=== PATIENT | female | born 1965 | race Caucasian/White ===

== ENCOUNTER 2016-10-04 13:15 | Inpatient (IN) | payer OTHER ==
--- NOTE | 2016-10-04 17:34 | HP ---
COWS - Scale Resting Pulse: 2= [place] 101-120 Sweatin=Flushed/Facial Moisture Restless Observation: 3= Extraneous Movement Pupil Size: 0= Normal to Room Light Bone or Joint Aches: 2= Severe Diffuse Aches Runny Nose/ Eye Tearin= Runny Nose/Eyes GI Upset > 30mins: 2= Nausea/Diarrhea Tremor Observation: 2= Slight Tremor Visible Yawning Observation: 0= None Anxiety or Irritability: 2=Irritable/Anxious Goose Flesh Skin: 0=Smooth Skin COWS Score: 17 CIWA Score - CIWA Score Nausea/Vomitin-Mild Nausea/No Vomiting Muscle Tremors: 4-Moderate,w/Arms Extend Anxiety: 4-Mod. Anxious/Guarded Agitation: 4-Moderately Restless Paroxysmal Sweats: 1-Minimal Palms Moist Orientation: 0-Oriented Tacttile Disturbances: 0-None Auditory Disturbances: 0-None Visual Disturbances: 0-None Headache: 1-Very Mild CIWA-Ar Total Score: 15 Admission ROS BHS - HPI Chief Complaint: withdrawal sx Allergies/Adverse Reactions: Allergies Allergy/AdvReac Type Severity Reaction Status Date / Time No Known Allergies Allergy Verified 10/04/16 17:30 History of Present Illness: 51 years old female with long history of heroin nicotine dependence, copd has anxiety is admitted to detox Exam Limitations: No Limitations - Ebola screening Have you traveled outside of the country in the last 21 days: No Have you had contact with anyone from an Ebola affected area: No Have you been sick,other than usual withdrawal symptoms: No Do you have a fever: No - Review of Systems Constitutional: Chills, Changes in sleep, Weight Stable EENT: reports: Other (eye glasses) Respiratory: reports: SOB with Exertion Cardiac: reports: Palpitations GI: reports: Nausea, Poor Fluid Intake, Indigestion, Abdominal cramping : reports: No Symptoms Reported Musculoskeletal: reports: Back Pain, Joint Pain, Muscle Pain, Neck Pain Integumentary: reports: Change in Color (right and left inner elbows) Neuro: reports: Tremors Endocrine: reports: No Symptoms Reported Hematology: reports: No Symptoms Reported Psychiatric: reports: Judgement Intact, Orientated x3, Anxious Other Systems: Reviewed and Negative Patient History - Patient Medical History Hx Anemia: No Hx Asthma: No Hx Chronic Obstructive Pulmonary Disease (COPD): Yes Hx Cancer: No Hx Cardiac Disorders: No Hx Congestive Heart Failure: No Hx Hypertension: No Hx Hypercholesterolemia: No Hx Pacemaker: No HX Cerebrovascular Accident: No Hx Seizures: No Hx Dementia: No Hx Diabetes: No Hx Gastrointestinal Disorders: No Hx Liver Disease: No Hx Genitourinary Disorders: No Hx Sexually Transmitted Disorders: No Hx Renal Disease (ESRD): No Hx Thyroid Disease: No Hx Human Immunodeficiency Virus (HIV): No Hx Hepatitis C: Yes (x 25 years) Hx Depression: Yes Hx Suicide Attempt: No Hx Bipolar Disorder: No Hx Schizophrenia: No - Patient Surgical History Past Surgical History: Yes Hx Neurologic Surgery: No Hx Cataract Extraction: No Hx Cardiac Surgery: No Hx Lung Surgery: No Hx Breast Surgery: No Hx Breast Biopsy: No Hx Abdominal Surgery: No Hx Appendectomy: No Hx Cholecystectomy: No Hx Genitourinary Surgery: No Hx Section: Yes (35 years old) Hx Orthopedic Surgery: Yes (right wrist left knee 2011) Hx Hysterectomy: No Anesthesia Reaction: No - PPD History Previous Implant?: Yes Documented Results: Negative w/o proof Implanted On Prior R Admission?: No PPD to be Administered?: Yes - Reproductive History Patient is a Female of Child Bearing Age (11 -55 yrs old): Yes Last Menstrual Period: 10/02/85 Patient : No - Smoking Cessation Smoking history: Current every day smoker Have you smoked in the past 12 months: Yes Aproximately how many cigarettes per day: 20 Cigars Per Day: 0 Hx Chewing Tobacco Use: No Initiated information on smoking cessation: Yes 'Breaking Loose' booklet given: 10/04/16 - Substance & Tx. History Hx Alcohol Use: No Hx Substance Use: Yes Substance Use Type: Cocaine, Opiates, Tranquilizers Hx Substance Use Treatment: Yes - Substances Abused Heroin Route: Injection Frequency: Daily Amount used: 10 bags Age of first use: 16 Date of Last Use: 10/04/16 Alprazolam (Xanax) Route: Oral Frequency: 3-6 times per week Amount used: 3-4 mg Age of first use: 46 Date of Last Use: 10/03/16 Family Disease History - Family Disease History Family Disease History: Heart Disease: Father ( ), Mother, Other: Sister Admission Physical Exam BHS - Physical General Appearance: Yes: Nourished, Appropriately Dressed, Mild Distress, Tremorous, Irritable, Sweating, Anxious HEENTM: Yes: Hearing grossly Normal, Normal ENT Inspection, Normocephalic, Normal Voice Respiratory: Yes: Chest Non-Tender, Labored Respiration, No Respiratory Distress , No Accessory Muscle Use, Hyperresonant, Inspiration Neck: Yes: Supple, Trachea in good position Breast: Yes: Breasts Symetrical Cardiology: Yes: Regular Rhythm, S1, S2, Tachycardia Abdominal: Yes: Non Tender, Soft Genitourinary: Yes: Within Normal Limits Back: Yes: Normal Inspection Musculoskeletal: Yes: full range of Motion, Gait Steady Extremities: Yes: Normal Range of Motion, Non-Tender, Tremors, Swelling (left hand soft tissue) Neurological: Yes: Fully Oriented, Alert, Motor Strength 5/5, Normal Response, Depressed Affect Integumentary: Yes: Warm Lymphatic: Yes: Within Normal Limits - Diagnostic (1) Opioid dependence with withdrawal Current Visit: Yes Status: Acute (2) Sedative, hypnotic or anxiolytic dependence with withdrawal, uncomplicated Current Visit: Yes Status: Acute (3) Tachycardia Current Visit: Yes Status: Chronic (4) COPD (chronic obstructive pulmonary disease) Current Visit: Yes Status: Acute Qualifiers: COPD type: emphysema Emphysema type: unilateral Qualified Code(s ): J43.0 - Unilateral pulmonary emphysema [MacLeod's syndrome] (5) Anxiety Current Visit: Yes Status: Suspected (6) Hepatitis C antibody test positive Current Visit: Yes Status: Chronic Cleared for Admission [facility] - Detox or Rehab [facility] Level of Care: Medically Managed Detox Regimen/Protocol: Methadone/Valium S Breath Alcohol Content Breath Alcohol Content: 0 Vital Signs - Vital Signs Vital Signs Refused: No Temperature: 96.5 F Temperature Source: Oral Pulse Rate: 112 Respiratory Rate: 20 Blood Pressure: 124/76 BP Location: Left Arm Blood Pressure Position: Sitting - Height Height: 5 ft 5 in - Weight Weight: 193 lb Weight Measurement Method: Standing Scale Body Mass Index (BMI): 32.1 - Bowel Function Bowel Movement: Yes Urine Pregancy Test - Result Urine Test Results: Negative- NO Line Present Urine Drug Screen - Control Is Test Valid: Yes - Results Drug Screen Negative: Yes Urine Drug Screen Results: LEANDRA-Cocaine, OPI-Opiates, BZO-Benzodiazepines, TCA- Tricyclic Antidepress, OXY-Oxycodone
[2016-10-04 17:39] VITALS: BMI 32.1
[2016-10-04] MEDS ORDERED: P-EPHED 60MG/TRIPROLIDI 2.5MG TABLET PO PRN (17:45)
[2016-10-04] MEDS ORDERED: LOPERAMIDE HCL 2 MG CAPSULE PO PRN (17:45)
[2016-10-04] MEDS ORDERED: guaiFENesin/D-METHORPHAN HB 10 ML UNIT-DOSE CUPS PO PRN (17:45)
[2016-10-04] MEDS ORDERED: NICOTINE POLACRILEX 2 MG GUM BC PRN (17:45)
[2016-10-04] MEDS ORDERED: MAG HYDROX/AL HYDROX/SIMETH 30 ML UNIT-DOSE CUP PO PRN (17:45)
[2016-10-04] MEDS ORDERED: MAGNESIUM HYDROX 2400MG/30ML ORAL SUSPENSION 30 ML CUP PO PRN (17:45)
[2016-10-04] MEDS ORDERED: MENTHOL/PHENOL 1 EACH UD MM PRN (17:45)
[2016-10-04] MEDS ORDERED: MAGNESIUM CITRATE 300 ML BOTTLE PO PRN (17:45)
[2016-10-04] MEDS ORDERED: diazePAM 5 MG TABLET PO ONE (17:45)
[2016-10-04] MEDS ORDERED: IBUPROFEN 400 MG TABLET (FP) PO PRN (17:45)
[2016-10-04] MEDS ORDERED: METHADONE HCL 10 MG TABLET (FOR DETOX USE ONLY) PO ONE ×2 (17:45→23:00)
[2016-10-04] MEDS ORDERED: ALBUTEROL SO4 6.7 GM HFA INHALER IH PRN (17:48)
[2016-10-04] MEDS ORDERED: METHADONE HCL 10 MG TABLET (FOR DETOX USE ONLY) ONE (20:27)
[2016-10-04] MEDS: diazePAM 5 MG TABLET PO SCH (22:32)
[2016-10-04] MEDS: THIAMINE HCL 100 MG TABLET (FP) PO SCH (22:32)
[2016-10-04] MEDS: BUDESONIDE/FORMETEROL FUMARATE 80/4.5 mcg INHALER IH SCH (22:55)
[2016-10-04 23:00] LABS: URINE APPEARANCE CLEAR; URINE BILIRUBIN NEGATIVE (NEGATIVE); URINE BLOOD NEGATIVE (NEGATIVE); URINE COLOR LTYELLOW; URINE GLUCOSE (UA) NEGATIVE (NEGATIVE); URINE KETONE NEGATIVE (NEGATIVE); URINE LEUK ESTERASE NEGATIVE (NEGATIVE); URINE NITRITE NEGATIVE (NEGATIVE); URINE PROTEIN NEGATIVE (NEGATIVE); URINE UROBILINOGEN NEGATIVE E.U./dl (0.2-1.0)
[2016-10-05] MEDS: diazePAM 5 MG TABLET PO SCH ×3 (06:19→22:35)
--- NOTE | 2016-10-05 08:48 | CONSULT ---
[facility] Psychiatric Consult - Data Date of interview: 10/05/16 Admission source: [facility] Identifying data: This is 51 years old obese female with no psychiatric hospitalization history intoxicated with: Opioids, Xanax and Nicotine Substance Abuse History: Smoking history: Current every day smoker. Have you smoked in the past 12 months: Yes. Aproximately how many cigarettes per day: 20. Cigars Per Day: 0. Hx Chewing Tobacco Use: No. Initiated information on smoking cessation: Yes. 'Breaking Loose' booklet given: 10/04/16. - Substance & Tx. History. Hx Alcohol Use: No. Hx Substance Use: Yes. Substance Use Type : Cocaine, Opiates, Tranquilizers. Hx Substance Use Treatment: Yes. - Substances Abused. Heroin. Route: Injection. Frequency: Daily. Amount used: 10 bags. Age of first use: 16. Date of Last Use: 10/04/16. Alprazolam (Xanax). Route: Oral. Frequency: 3-6 times per week. Amount used: 3-4 mg. Age of first use: 46. Date of Last Use: 10/03/16 Medical History: Obesity, COPD, HepC+ Psychiatric History: Patient reports history of anxiety, reports nop medications tsaking prior to admission, asking for Xanax Physical/Sexual Abuse/Trauma History: Denies, unclear Additional Comment: Observation. Detox Unit Care Protocol Psychiatric Findings - Problem List ([place] 1, 2,3) (1) COPD (chronic obstructive pulmonary disease) Current Visit: Yes Status: Acute Qualifiers: COPD type: emphysema Emphysema type: unilateral Qualified Code(s ): J43.0 - Unilateral pulmonary emphysema [MacLeod's syndrome] (2) Opioid dependence with withdrawal Current Visit: Yes Status: Acute (3) Sedative, hypnotic or anxiolytic dependence with withdrawal, uncomplicated Current Visit: Yes Status: Acute (4) Drug-induced mood disorder Current Visit: Yes Status: Acute - Initial Treatment Plan Initial Treatment Plan: Geodone 40mg po bid. Trazodone 100mg po qhs. Neurontin 100mg po bid
[2016-10-05] MEDS ORDERED: METHADONE HCL 10 MG TABLET (FOR DETOX USE ONLY) PO SCH (10:00)
[2016-10-05] MEDS: BUDESONIDE/FORMETEROL FUMARATE 80/4.5 mcg INHALER IH SCH ×2 (10:45→22:34)
[2016-10-05] MEDS: NICOTINE 21 MG/24 HOURS TOPICAL PATCH TD SCH (10:46)
[2016-10-05] MEDS: PRENATAL VITAMINS W/ FOLIC ACID TABLET (FP) PO SCH (10:46)
[2016-10-05] MEDS: diazePAM 5 MG TABLET PO PRN ×2 (10:47→19:06)
--- NOTE | 2016-10-05 11:21 | PN ---
[facility] CIWA - CIWA Score Nausea/Vomitin Muscle Tremors: 3 Anxiety: 3 Agitation: 3 Paroxysmal Sweats: 3 Orientation: 0-Oriented Tacttile Disturbances: 2-Mild Itch/Numbness/Burn Auditory Disturbances: 0-None Visual Disturbances: 0-None Headache: 0-None Present CIWA-Ar Total Score: 16 BHS COWS - Scale Resting Pulse: 1= AR 81-100 Sweatin= Chills/Flushing Restless Observation: 1= Difficult to Sit Still Pupil Size: 1= Pupils >than Normal Bone or Joint Aches: 2= Severe Diffuse Aches Runny Nose/ Eye Tearin= Nasal Congestion GI Upset > 30mins: 1= Stomach Cramp Tremor Observation of Outstretched Hands: 2= Slight Tremor Visible Yawning Observation: 1= 1-2x During Session Anxiety or Irritability: 2=Irritable/Anxious Goose Flesh Skin: 0=Smooth Skin COWS Score: 13 S Progress Note (SOAP) Subjective: interrrupted sleep, sweats ,shakes,diarrhea Objective: 10/05/16 11:20 Vital Signs Temperature 98.5 F 10/05/16 07:43 Pulse Rate 81 10/05/16 07:43 Respiratory Rate 18 10/05/16 07:43 Blood Pressure 113/68 10/05/16 07:43 O2 Sat by Pulse Oximetry (%) Laboratory Tests 10/04/16 22:04 Urine Color Ltyellow Urine Appearance Clear Urine pH 5.0 Ur Specific [place] 1.012 Urine Protein Negative Urine Glucose (UA) Negative Urine Ketones Negative Urine Blood Negative Urine Nitrite Negative Urine Bilirubin Negative Urine Urobilinogen Negative Ur Leukocyte Esterase Negative pending labs pt aox3 in nad ambulating Assessment: 10/05/16 11:20 withdrawl sx's diarrhea Plan: cont. detox increase fluids flexeril 10mfg tid ensure bid imodium prn
[2016-10-05 11:31] LABS: MCH 29.5 pg (25.7-33.7); MCHC 33.3 g/dl (32.0-36.0); MEAN CELL VOLUME 88.6 fl (80-96); MEAN PLT VOLUME 8.7 fl (7.5-11.1); PLATELET COUNT 237 K/MM3 (134-434); RDW 13.1 % (11.6-15.6); WHITE BLOOD COUNT 8.3 K/mm3 (4.0-10.0)
[2016-10-05 11:43] LABS: ALBUMIN 3.9 g/dl (3.4-5.0); ALK PHOS 126 U/L (45-117); ANION GAP 7 (8-16); BILIRUBIN,TOTAL 0.6 mg/dL (0.2-1.0); CALCIUM 9.2 mg/dL (8.5-10.1); CO2 31 mmol/L (21-32); CREATININE 0.7 mg/dL (0.55-1.02); GLUCOSE,RANDOM 81 mg/dL (74-106); SGOT/AST 21 U/L (15-37); SGPT/ALT 28 U/L (12-78); TOT PROT 7.6 g/dl (6.4-8.2)
[2016-10-05] MEDS: THIAMINE HCL 100 MG TABLET (FP) PO SCH (22:35)
[2016-10-05] MEDS: diphenhydrAMINE HCL 50 MG CAPSULE PO PRN (22:35)
[2016-10-05] MEDS: CYCLOBENZAPRINE HCL 10 MG TABLET (FP) PO PRN (22:35)
[2016-10-06] MEDS: diazePAM 5 MG TABLET PO PRN ×4 (01:28→18:18)
[2016-10-06] MEDS: diphenhydrAMINE HCL 50 MG CAPSULE PO PRN ×2 (01:29→22:35)
[2016-10-06] MEDS: ACETAMINOPHEN 325 MG TABLET (FP) PO PRN ×2 (03:45→22:36)
[2016-10-06] MEDS ORDERED: METHADONE HCL 5 MG TABLET (FOR DETOX USE ONLY) PO SCH (10:00)
[2016-10-06] MEDS: BUDESONIDE/FORMETEROL FUMARATE 80/4.5 mcg INHALER IH SCH ×2 (10:51→22:35)
[2016-10-06] MEDS: diazePAM 5 MG TABLET PO SCH ×2 (10:51→22:36)
[2016-10-06] MEDS: PRENATAL VITAMINS W/ FOLIC ACID TABLET (FP) PO SCH (10:51)
[2016-10-06] MEDS: NICOTINE 21 MG/24 HOURS TOPICAL PATCH TD SCH (10:51)
--- NOTE | 2016-10-06 11:32 | PN ---
[facility] CIWA - CIWA Score Nausea/Vomitin-No Nausea/No Vomiting Muscle Tremors: 4-Moderate,w/Arms Extend Anxiety: 3 Agitation: 4-Moderately Restless Paroxysmal Sweats: 3 Orientation: 0-Oriented Tacttile Disturbances: 0-None Auditory Disturbances: 0-None Visual Disturbances: 0-None Headache: 0-None Present CIWA-Ar Total Score: 14 BHS COWS - Scale Resting Pulse: 2= RI 101-120 Sweatin=Flushed/Facial Moisture Restless Observation: 1= Difficult to Sit Still Pupil Size: 0= Normal to Room Light Bone or Joint Aches: 1= Mild Discomfort Runny Nose/ Eye Tearin= Nasal Congestion GI Upset > 30mins: 0= None Tremor Observation of Outstretched Hands: 2= Slight Tremor Visible Yawning Observation: 1= 1-2x During Session Anxiety or Irritability: 2=Irritable/Anxious Goose Flesh Skin: 3=Piloerection COWS Score: 15 [facility] Progress Note (SOAP) Subjective: restless agitation anxiety sweats shakes interrupted sleep irritable Objective: 10/06/16 11:31 Vital Signs Temperature 97 F L 10/06/16 10:14 Pulse Rate 104 H 10/06/16 10:14 Respiratory Rate 18 10/06/16 10:14 Blood Pressure 119/60 10/06/16 10:14 O2 Sat by Pulse Oximetry (%) Laboratory Tests 10/04/16 10/05/16 10/05/16 22:04 06:00 06:00 WBC 8.3 RBC 4.05 Hgb 11.9 Hct 35.9 MCV 88.6 MCHC 33.3 RDW 13.1 Plt Count 237 MPV 8.7 Sodium 141 Potassium 4.3 Chloride 103 Carbon Dioxide 31 Anion Gap 7 L BUN 13 Creatinine 0.7 Creat Clearance w eGFR > 60 Random Glucose 81 Calcium 9.2 Total Bilirubin 0.6 AST 21 ALT 28 Alkaline Phosphatase 126 H Total Protein 7.6 Albumin 3.9 Urine Color Ltyellow Urine Appearance Clear Urine pH 5.0 Ur Specific [place] 1.012 Urine Protein Negative Urine Glucose (UA) Negative Urine Ketones Negative Urine Blood Negative Urine Nitrite Negative Urine Bilirubin Negative Urine Urobilinogen Negative Ur Leukocyte Esterase Negative RPR Titer 10/05/16 06:00 WBC RBC Hgb Hct MCV MCHC RDW Plt Count MPV Sodium Potassium Chloride Carbon Dioxide Anion Gap BUN Creatinine Creat Clearance w eGFR Random Glucose Calcium Total Bilirubin AST ALT Alkaline Phosphatase Total Protein Albumin Urine Color Urine Appearance Urine pH Ur Specific [place] Urine Protein Urine Glucose (UA) Urine Ketones Urine Blood Urine Nitrite Urine Bilirubin Urine Urobilinogen Ur Leukocyte Esterase RPR Titer Nonreactive awake/alert ambulating no acute distress Assessment: 10/06/16 11:31 withdrawal sx Plan: continue detox increase fluids
--- NOTE | 2016-10-06 14:50 | PN ---
[facility] Progress Note Note: TP. WAS SENT TO DETOX SO SHE WOULD ADMITTED TO OTP. SHE'LL COMPLETE [facility] DETOX ON 10/08/16 P : BUILD UP METHADONE TO 80 MG DAILY
[2016-10-06] MEDS: THIAMINE HCL 100 MG TABLET (FP) PO SCH (22:36)
[2016-10-07] MEDS: diazePAM 5 MG TABLET PO PRN ×4 (02:19→17:07)
[2016-10-07] MEDS: ACETAMINOPHEN 325 MG TABLET (FP) PO PRN ×2 (05:42→20:27)
[2016-10-07] MEDS ORDERED: METHADONE HCL 10 MG TABLET PO SCH (06:00)
[2016-10-07] MEDS: BUDESONIDE/FORMETEROL FUMARATE 80/4.5 mcg INHALER IH SCH ×2 (09:54→22:25)
[2016-10-07] MEDS: CYCLOBENZAPRINE HCL 10 MG TABLET (FP) PO PRN ×2 (10:44→22:25)
[2016-10-07] MEDS: diazePAM 5 MG TABLET PO SCH ×2 (10:44→22:25)
[2016-10-07] MEDS: PRENATAL VITAMINS W/ FOLIC ACID TABLET (FP) PO SCH (10:44)
[2016-10-07] MEDS: NICOTINE 21 MG/24 HOURS TOPICAL PATCH TD SCH (10:47)
--- NOTE | 2016-10-07 11:15 | PN ---
B[facility] Progress Note (SOAP) Subjective: gi upset, insomnia, sweating Objective: 10/07/16 11:15 Laboratory Tests 10/04/16 10/05/16 10/05/16 22:04 06:00 06:00 WBC 8.3 RBC 4.05 Hgb 11.9 Hct 35.9 MCV 88.6 MCHC 33.3 RDW 13.1 Plt Count 237 MPV 8.7 Sodium 141 Potassium 4.3 Chloride 103 Carbon Dioxide 31 Anion Gap 7 L BUN 13 Creatinine 0.7 Creat Clearance w eGFR > 60 Random Glucose 81 Calcium 9.2 Total Bilirubin 0.6 AST 21 ALT 28 Alkaline Phosphatase 126 H Total Protein 7.6 Albumin 3.9 Urine Color Ltyellow Urine Appearance Clear Urine pH 5.0 Ur Specific [place] 1.012 Urine Protein Negative Urine Glucose (UA) Negative Urine Ketones Negative Urine Blood Negative Urine Nitrite Negative Urine Bilirubin Negative Urine Urobilinogen Negative Ur Leukocyte Esterase Negative RPR Titer 10/05/16 06:00 WBC RBC Hgb Hct MCV MCHC RDW Plt Count MPV Sodium Potassium Chloride Carbon Dioxide Anion Gap BUN Creatinine Creat Clearance w eGFR Random Glucose Calcium Total Bilirubin AST ALT Alkaline Phosphatase Total Protein Albumin Urine Color Urine Appearance Urine pH Ur Specific [place] Urine Protein Urine Glucose (UA) Urine Ketones Urine Blood Urine Nitrite Urine Bilirubin Urine Urobilinogen Ur Leukocyte Esterase RPR Titer Nonreactive Vital Signs - 24 hr 10/06/16 10/06/16 10/06/16 14:58 18:14 22:39 Temperature 97.2 F L 98.1 F 98.1 F Pulse Rate 101 H 83 102 H Respiratory 18 18 18 Rate Blood Pressure 121/73 128/78 141/84 10/07/16 10/07/16 10/07/16 03:30 06:00 10:30 Temperature 96.1 F L 97.3 F L Pulse Rate 97 H 87 Respiratory 18 16 18 Rate Blood Pressure 148/81 122/57 Assessment: 10/07/16 11:15 ongoing withdrawal Plan: continue detox protocol
--- NOTE | 2016-10-07 13:23 | PN ---
[facility] Progress Note Note: pt will complete detox tomorrow and will be discharged. pt will receive her 30mg of methadone on her discharge date as well. pt will then return to methadone program on Monday10/09/16 for methadone maintenance at [facility] facility to begin her maintenance. Program is aware.
[2016-10-07 22:23] VITALS: BP 144/81; PULSE 77; TEMP 97.7
[2016-10-07] MEDS: THIAMINE HCL 100 MG TABLET (FP) PO SCH (22:25)
[2016-10-07] MEDS: diphenhydrAMINE HCL 50 MG CAPSULE PO PRN (22:25)
[2016-10-08] MEDS ORDERED: METHADONE HCL 10 MG TABLET PO SCH (06:00)
--- NOTE | 2016-10-08 07:33 | PN ---
S Progress Note (SOAP) Subjective: ALERT,NO COMPLAINT Objective: 10/08/16 07:31 Vital Signs Temperature 97.7 F 10/07/16 22:23 Pulse Rate 77 10/07/16 22:23 Respiratory Rate 16 10/08/16 03:30 Blood Pressure 144/81 10/07/16 22:23 O2 Sat by Pulse Oximetry (%) Assessment: 10/08/16 07:32 DETOX COMPLETED,NO WITHDRAWAL SYMPTOM Plan: DISCHARGE TODAY,FOLLOW UP WITH AFTER CARE PROGRAM ARRANGEMENT
--- NOTE | 2016-10-08 07:37 | DS ---
[facility] Detox Discharge Summary Admission Date: 10/04/16 Discharge Date: 10/08/16 - History Present History: Sedative Dependence, MMTP Additional Comments: FOLLOW UP WITH AFTER CARE PROGRAM ARRANGEMENT Pertinent Past History: HEPATITIS C - Physical Exam Results Vital Signs: Vital Signs Temperature 97.7 F 10/07/16 22:23 Pulse Rate 77 10/07/16 22:23 Respiratory Rate 16 10/08/16 03:30 Blood Pressure 144/81 10/07/16 22:23 O2 Sat by Pulse Oximetry (%) Pertinent Admission Physical Exam Findings: WITHDRAWAL SYMPTOM - Treatment Hospital Course: Detox Protocol Followed, Detoxed Safely, Responded well, Discharged Condition Good Patient has Accepted a Rehab Referral to: DECLINED - Medication Discharge Medications: Ambulatory Orders NK [No Known Home Medication] 10/04/16 - AMA Did Patient Leave Against Medical Advice: No
[2016-10-08] MEDS ORDERED: METHADONE HCL 10 MG TABLET (FOR DETOX USE ONLY) PO SCH (10:00)
[2016-10-08] MEDS ORDERED: diazePAM 5 MG TABLET PO SCH (10:00)
[2016-10-09] MEDS ORDERED: METHADONE HCL 5 MG TABLET (FOR DETOX USE ONLY) PO SCH (06:00)
[2016-10-09] MEDS ORDERED: METHADONE HCL 40 MG DISPERSABLE TABLET PO SCH (06:00)
== END 2016-10-08 06:30 | disposition home or self-care (01) | DRG 897 ==
LOC: YASAS 13:15 → Y6N 18:58
PROVIDERS: ADMIT Internal Medicine Addiction Medicine; ATTEND Internal Medicine Addiction Medicine
PROC: HZ2ZZZZ Detoxification Services for Substance Abuse Treatment (ICD-10-PCS; principal; 2016-10-04)
DX: F11.23 Opioid dependence with withdrawal (principal); F13.230 Sedative, hypnotic or anxiolytic dependence with withdrawal, uncomplicated; F17.210 Nicotine dependence, cigarettes, uncomplicated; F19.24 Other psychoactive substance dependence with psychoactive substance-induced mood disorder; F41.9 Anxiety disorder, unspecified; E66.9 Obesity, unspecified; Z68.32 Body mass index [BMI] 32.0-32.9, adult; J43.0 Unilateral pulmonary emphysema [MacLeod's syndrome]; R00.0 Tachycardia, unspecified
CPT/HCPCS: 36415; 80053; 81003; 85027; 86593; 86803; 87522; 93005; 93010

== ENCOUNTER 2019-02-19 12:38 | Emergency (ER) | payer OTHER ==
[2019-02-19 12:44] VITALS: BP 108/62; PULSE 99; TEMP 98.2; BMI 36.6
--- NOTE | 2019-02-19 14:50 | PDOC ---
History of Present Illness - General Chief Complaint: Pain Stated Complaint: SENT BY PCP R/O DVT LEFT LEG Time Seen by Provider: 02/19/19 13:20 History Source: Patient Exam Limitations: No Limitations - History of Present Illness Initial Comments: 02/19/19 14:46 53F with no PMH (does not follow with PCP) who presents to the ER from [facility] for L leg swelling. The patient states that she's noticed worsening swelling in her L LE with "some" shortness of breath without CP, fever, chills, nausea, vomiting, diaphoresis. She has never had this in the past. She denies any long car rides/plane trips, hx of DVT/PE, hx of recent surgery, hx of cancer , hx of malignancy. She admits to smoking 1ppd. Past History - Past Medical History Allergies/Adverse Reactions: Allergies Allergy/AdvReac Type Severity Reaction Status Date / Time No Known Allergies Allergy Verified 02/19/19 12:44 Home Medications: Ambulatory Orders Albuterol Sulfate Inhaler - [Ventolin HFA Inhaler -] 2 puff IH Q4H PRN #0 inhaler 10/08/16 Budesonide/Formeterol Fumarate [SYMBICORT 80/4.5mcg -] 2 puff IH BID inhaler Anemia: No Asthma: No Cancer: No Cardiac Disorders: No CVA: No COPD: Yes CHF: No Dementia: No Diabetes: No GI Disorders: No Disorders: No HTN: No Hypercholesterolemia: No Liver Disease: No Seizures: No Thyroid Disease: No - Surgical History Abdominal Surgery: No Appendectomy: No Cardiac Surgery: No Cholecystectomy: No Lung Surgery: No Neurologic Surgery: No Orthopedic Surgery: Yes (right wrist left knee 2012) - Suicide/Smoking/Psychosocial Hx Smoking History: Current every day smoker Have you smoked in the past 12 months: Yes Number of Cigarettes Smoked Daily: 20 Cigars Per Day: 0 Information on smoking cessation initiated: Yes 'Breaking Loose' booklet given: 10/04/16 Hx Alcohol Use: Yes Drug/Substance Use Hx: No (methadone) Substance Use Type: Alcohol Hx Substance Use Treatment: Yes Review of Systems - Review of Systems Able to Perform ROS?: Yes Comments:: 02/19/19 14:51 GENERAL/CONSTITUTIONAL: No fever or chills. No weakness. HEAD, EYES, EARS, NOSE AND THROAT: No change in vision. No ear pain or discharge. No sore throat. CARDIOVASCULAR: No chest pain, palpitations, or lightheadedness. RESPIRATORY: No cough, wheezing, shortness of breath, or hemoptysis. GASTROINTESTINAL: No nausea, vomiting, diarrhea, constipation, or abdominal pain. GENITOURINARY: No dysuria, frequency, hematuria, or change in urination. MUSCULOSKELETAL: + for L LE swelling. No neck or back pain. SKIN: No rash or lesions. NEUROLOGIC: No headache, numbness, tingling, focal weakness, loss of consciousness, or change in strength/sensation. Is the patient limited [place]ian proficient: No *Physical Exam - Vital Signs Last Vital Signs Temp Pulse Resp BP Pulse Ox 98.2 F 99 H 18 108/62 95 02/19/19 12:42 02/19/19 12:42 02/19/19 12:42 02/19/19 12:42 02/19/19 12:42 - Physical Exam Comments: 02/19/19 14:54 GENERAL: Well developed, well nourished. Awake and alert. No acute distress. HEENT: Normocephalic, atraumatic. Hearing grossly normal. Moist mucous membranes. PERRLA, EOMI. No conjunctival pallor. Sclera are non-icteric. NECK: Supple. Full ROM. No JVD. CARDIOVASCULAR: Regular rate and rhythm. No murmurs, rubs, or gallops. Distal pulses are 2+ and symmetric. PULMONARY: No evidence of respiratory distress. Lungs clear to auscultation bilaterally. No wheezing, rales or rhonchi. ABDOMINAL: Soft. Non-tender. Non-distended. No rebound or guarding. MUSCULOSKELETAL: Normal range of motion at all joints. No bony deformities or tenderness. EXTREMITIES: No cyanosis. No clubbing. No edema. L calf swelling noted. SKIN: Warm and dry. Normal capillary refill. No rashes. No jaundice. NEUROLOGICAL: Alert, awake, appropriate. Cranial nerves 2-12 intact. Normal speech. Gait is normal without ataxia. PSYCHIATRIC: Cooperative. Good eye contact. Appropriate mood and affect. ED Treatment Course - LABORATORY CBC & Chemistry Diagram: 02/19/19 15:00 - RADIOLOGY Radiology Studies Ordered: Category Date Time Status DUPLEX VASCUL US-1 LEG [US] Stat Ultrasound 02/19/19 14:11 Ordered Medical Decision Making - Medical Decision Making 02/19/19 14:59 53F who presents with L LE swelling x 3 weeks concerning for DVT vs other process (CHF, cellulitis, popliteal cyst). Pending US. Will order labs. Pt stable and comfortable appearing. 02/19/19 16:07 US negative for DVT. Soft tissue swelling is noted in the L LE. *DC/Admit/Observation/Transfer Diagnosis at time of Disposition: Leg swelling - Discharge Dispostion Disposition: AGAINST MEDICAL ADVICE Condition at time of disposition: Stable Decision to Admit order: No - Referrals - Patient Instructions Printed Discharge Instructions: DI for Deep Vein Thrombosis Additional Instructions: You are leaving against medical advice. Please follow up with your primary care doctor and return to the ER if you develop any signs or symptoms of chest pain, shortness of breath, uncontrollable fever, chills, nausea, vomiting, numbness, tingling, or weakness in any part of your body, changes in vision, or slurred speech. Your ER visit is not complete until your follow up with your primary care physician. Please follow up with your primary care physician in 1-2 days. Please return to the ER if symptoms persist, worsen, or new symptoms arise. - Post Discharge Activity
--- NOTE | 2019-02-19 17:28 | PDOC ---
Documentation entered by Shannon Munoz SCRIBE, acting as scribe for Lea Plascencia MD. Lea Plascencia MD: This documentation has been prepared by the Tammy abbasi Renju, SCRIBE, under my direction and personally reviewed by me in its entirety. I confirm that the documentation accurately reflects all work, treatment, procedures, and medical decision making performed by me. Attending Attestation - Resident Resident Name: BrockcristianTyrone - ED Attending Attestation I have performed the following: I have examined & evaluated the patient, The case was reviewed & discussed with the resident, I agree w/resident's findings & plan, Exceptions are as noted - HPI HPI: 02/19/19 15:54 53yo F hx HCV s/p treatment presents from the [facility], p/w L leg swelling for 3 weeks. Pt reports the swelling was previously in her RLE as well but has resolved. Pt attributes the swelling in her legs to salt water soaks she was doing to thin her toe nails out. Pt denies having similar symptoms in the past. Denies shortness of breath or chest pain. DEnies recent travel or immobility. Denies fevers or chills. Denies cancer hx. Endorses cigarette smoking. Pt was seen at the [facility] for the swelling this morning and out of concern for DVT , she was sent to the ED. Denies headache, abd pain, N/V, focal weakness/numbness. - Physicial Exam PE: 02/19/19 15:55 GENERAL: Awake, alert, and fully oriented, in no acute distress EYES: PERRLA, EOMI, sclera anicteric, conjunctiva clear ENT: Oropharynx clear without exudates. Moist mucosa NECK: Normal ROM, supple, no lymphadenopathy, JVD, or masses LUNGS: Breath sounds equal, clear to auscultation bilaterally. No wheezes, and no crackles HEART: Regular rate and rhythm, normal S1 and S2, no murmurs, rubs or gallops ABDOMEN: Soft, nontender, normoactive bowel sounds. No guarding, no rebound. No masses EXTREMITIES: LLE with 2+ non pitting edema to the mid thigh. No calf ttp. No erythema, induration, or warmth. Palpable DP pulse b/l. RLE with no edema, ttp. B/l LE with FROM BACK: No midline spinal tenderness in cervical/thoracic/lumbar region NEUROLOGICAL: Normal speech, cranial nerves intact, equal strength and sensation b/l. Normal gait. SKIN: Warm, Dry, normal turgor, no rashes or lesions noted. - Medical Decision Making 02/19/19 17:02 53yo F presents to the ED with LLE edema for 3 weeks Vitals wnl DDx includes DVT vs venous stasis vs cellulitis DVT study negative Plan for labs including WBC, dimer, BNP however pt refusing to stay for labs States labs were drawn at [facility] this morning Explained to pt that those labs were different than the ones we sent and were not resulted yet Pt states she does not think they are necessary as she relates her swelling to the salt water soaks she did 3 weeks ago Explained to pt that may be the case but we must r/o infection, DVT, heart failure Pt declines, prefers to f/u with [facility] The patient is clinically sober, free from distracting injury, appears to have intact insight and judgment and reason and in my opinion has the capacity to make decisions. The patient presents with LLE swelling. I have explained that I am concerned that this may represent DVT, heart failure, infection; she has verbalized an understanding of my concerns. I have told the patient that while her labs and US were normal, she could still have DVT, heart failure, infection. I have discussed the need for labs to get more information about potential causes of the patients swelling. I have told the patient that if they leave, they could get much worse, could become critically ill, and could possibly become disabled or . The patient is not willing to undergo lab work. She is unwilling to stay overnight for monitoring. He is refusing any further care and is leaving against medical advice. I am unable to convince the patient to stay, I have asked her to return as soon as possible to complete their evaluation. I have answered all their questions.
== END 2019-02-19 16:55 | disposition left against medical advice (07) ==
LOC: JER 12:38
DX: R60.0 Localized edema (principal); F17.210 Nicotine dependence, cigarettes, uncomplicated
CPT/HCPCS: 93971-TC; 99281-25